=== PATIENT | male | born 1965 | race Caucasian/White ===

== ENCOUNTER 2018-01-02 08:35 | Day surgery (SDC) | payer OTHER ==
[2018-01-02] MEDS ORDERED: LIDOCAINE 1% SDV 5 ML VIAL SQ ×2 (08:45)
[2018-01-02] MEDS: LR 1,000 ML IV ×2 (09:41)
[2018-01-02] MEDS ORDERED: PROPOFOL 200 MG/20 ML VIAL As Ordered ×4 (10:25→11:30)
[2018-01-02] MEDS ORDERED: ROCURONIUM BROMIDE 50 MG/5 ML VIAL As Ordered ×2 (10:25)
[2018-01-02] MEDS ORDERED: MIDAZOLAM INJ 2 MG/2 ML VIAL (J2250) As Ordered ×2 (10:26)
[2018-01-02] MEDS ORDERED: fentaNYL 100 MCG/2 ML INJECTION (J3010) As Ordered ×6 (10:26→12:40)
[2018-01-02] MEDS: CEFAZOLIN SOD 1 GM in APPROPRIATE DILUENT 1 EA IV (11:18)
[2018-01-02] MEDS: BUPIVACAINE/EPIN 0.5% 30 ML VIAL As Ordered ×2 (12:03)
[2018-01-02] MEDS ORDERED: dexameTHASONE 4 MG/ML 1ML VIAL (J1100) As Ordered ×2 (12:34)
[2018-01-02] MEDS ORDERED: GLYCOPYRROLATE INJ 0.2 MG/ML 2 ML VIAL As Ordered ×2 (12:34)
[2018-01-02] MEDS ORDERED: ONDANSETRON 4MG/2ML VIAL (J2405) As Ordered ×2 (12:34)
[2018-01-02] MEDS ORDERED: ONDANSETRON 4MG/2ML VIAL (J2405) IV ×4 (13:30)
[2018-01-02] MEDS ORDERED: LR 1,000 ML IV ×4 (13:30)
[2018-01-02] MEDS ORDERED: fentaNYL 100 MCG/2 ML INJECTION (J3010) IV ×2 (13:30)
[2018-01-02] MEDS ORDERED: KETOROLAC 30 MG/ML VIAL (J1885) IV ×2 (13:30)
[2018-01-02] MEDS ORDERED: NORCO, ANEXSIA 5/325MG TABLET (HYDROcodone/ACETAMINOPHEN) PO ×2 (13:30)
[2018-01-02] MEDS: NORCO, ANEXSIA 5/325MG TABLET (HYDROcodone/ACETAMINOPHEN) PO ×2 (13:40)
[2018-01-02] MEDS ORDERED: MORPHINE 4 MG/ML 1ML VIAL (J2270) IV (14:00)
[2018-01-02] MEDS ORDERED: MORPHINE 4 MG/ML 1ML VIAL/SYRINGE (J2270) IV (14:00)
== END 2018-01-02 15:44 | disposition home or self-care (01) ==
LOC: M SDC 08:35
DX: K40.90 Unilateral inguinal hernia, without obstruction or gangrene, not specified as recurrent (principal); E03.9 Hypothyroidism, unspecified; Z79.899 Other long term (current) drug therapy; Z88.0 Allergy status to penicillin; Z91.040 Latex allergy status; Z88.2 Allergy status to sulfonamides
CPT/HCPCS: 49650